=== PATIENT | female | born 1985 | race Caucasian/White ===

== ENCOUNTER 2020-01-07 13:18 | Emergency (ER) | payer SELFPAY ==
[2020-01-07] MEDS ORDERED: Sodium Chloride 0.9% 10 ML Syringe FLUSH PRN (13:47)
[2020-01-07] MEDS ORDERED: Aspirin 81 MG Tab.Chew PO ONE (13:47)
--- NOTE | 2020-01-07 14:12 | CR ---
Chest: PA and lateral views of the chest were obtained. Comparison: No prior chest imaging. Findings: Heart size and mediastinum are normal. Lungs are clear. Bony structures are grossly intact. Impression: 1. Nothing acute is seen on 2 view chest x-ray. Diagnostic code #1 This report was dictated in MDT
--- NOTE | 2020-01-07 15:39 | EDM.PDOC ---
ED HPI GENERAL MEDICAL PROBLEM - General Chief Complaint: Chest Pain Stated Complaint: CHEST TIGHTNESS/BACK-NECK PAIN Time Seen by Provider: 01/07/20 13:34 Source of Information: Reports: Patient History Limitations: Reports: No Limitations - History of Present Illness INITIAL COMMENTS - FREE TEXT/NARRATIVE: The patient presents with chest pain. This started a few days ago. She has some shortness of breath with it. She says the pain is made worse with deep breathing. She has no history of heart problems. She has no fever, chills or cough. She has no abdominal pain, nausea or vomiting. She has no history of DVT or PE. She has no recent travel. Onset: Gradual Duration: Day(s): Location: Reports: Chest Quality: Reports: Sharp Severity: Moderate Improves with: Reports: None Worsens with: Reports: None Associated Symptoms: Reports: Chest Pain, Shortness of Breath. Denies: Cough, Fever/Chills, Headaches, Nausea/Vomiting Middle Chest Pain Score (Numeric/FACES): 5 - Related Data Allergies Allergy/AdvReac Type Severity Reaction Status Date / Time No Known Allergies Allergy Verified 01/07/20 13:27 Home Meds: Home Meds . [No Known Home Meds] 01/07/20 [History] Past Medical History - Past Health History Medical/Surgical History: Denies Medical/Surgical History Social & Family History - Tobacco Use Smoking Status *Q: Never Smoker Second Hand Smoke Exposure: No - Recreational Drug Use Recreational Drug Use: No ED ROS GENERAL - Review of Systems Review Of Systems: See Below Constitutional: Reports: No Symptoms HEENT: Reports: No Symptoms Respiratory: Reports: Shortness of Breath Cardiovascular: Reports: Chest Pain Endocrine: Reports: No Symptoms GI/Abdominal: Reports: No Symptoms : Reports: No Symptoms Musculoskeletal: Reports: No Symptoms ED EXAM, GENERAL - Physical Exam Exam: See Below Exam Limited By: No Limitations General Appearance: Alert, No Apparent Distress Ears: Normal External Exam Nose: Normal Inspection Head: Atraumatic, Normocephalic Neck: Normal Inspection Respiratory/Chest: No Respiratory Distress, Lungs Clear, Normal Breath Sounds Cardiovascular: Regular Rate, Rhythm, No Edema, No Murmur GI/Abdominal: Soft, Non-Tender, No Organomegaly, No Mass Back Exam: Normal Inspection Extremities: Normal Inspection EKG INTERPRETATION EKG Date: 03/26/20 Time: 13:58 Rhythm: NSR Rate (Beats/Min): 68 [place]: Normal P-Wave: Present QRS: Normal ST-T: Normal QT: Normal Course - Vital Signs Last Recorded V/S: Last Vital Signs Temp 98.4 F 01/07/20 13:24 Pulse 89 01/07/20 13:24 Resp 16 01/07/20 13:24 BP 136/80 01/07/20 13:24 Pulse Ox 98 01/07/20 13:24 - Orders/Labs/Meds Orders: Active Orders 24 hr Category Date Time Status Cardiac Monitoring [RC] . DIRECTED Care 01/07/20 13:47 Active EKG Documentation Completion [RC] STAT Care 01/07/20 13:48 Active Peripheral IV Care [RC] . DIRECTED Care 01/07/20 13:48 Active Sodium Chloride 0.9% [Saline Flush] Med 01/07/20 13:47 Active 10 ml FLUSH ASDIRECTED PRN Peripheral IV Insertion Adult [OM.PC] Stat Oth 01/07/20 13:47 Ordered Medication Orders Sodium Chloride (Saline Flush) 10 ml FLUSH ASDIRECTED PRN PRN Reason: Keep Vein Open Last Admin: 01/07/20 14:17 Dose: 10 ml Labs: Laboratory Tests 01/07/20 01/07/20 01/07/20 Range/Units 14:15 14:15 14:15 WBC 8.42 (3.98-10.04) K/mm3 RBC 4.85 (3.98-5.22) M/mm3 Hgb 14.3 (11.2-15.7) gm/dl Hct 41.8 (34.1-44.9) % MCV 86.2 (79.4-94.8) fl MCH 29.5 (25.6-32.2) pg MCHC 34.2 (32.2-35.5) g/dl RDW Std Deviation 39.9 (36.4-46.3) fL Plt Count 266 (182-369) K/mm3 MPV 10.5 (9.4-12.3) fl Neut % (Auto) 58.9 (34.0-71.1) % Lymph % (Auto) 29.2 (19.3-51.7) % [place] % (Auto) 8.3 (4.7-12.5) % Eos % (Auto) 3.2 (0.7-5.8) Baso % (Auto) 0.2 (0.1-1.2) % Neut # (Auto) 4.95 (1.56-6.13) K/mm3 Lymph # (Auto) 2.46 (1.18-3.74) K/mm3 [place] # (Auto) 0.70 H (0.24-0.36) K/mm3 Eos # (Auto) 0.27 (0.04-0.36) K/mm3 Baso # (Auto) 0.02 (0.01-0.08) K/mm3 D-Dimer, Quantitative 0.41 (0.19-0.50) mg/L Sodium 141 (136-145) mEq/L Potassium 3.9 (3.5-5.1) mEq/L Chloride 105 (98-107) mEq/L Carbon Dioxide 23 (21-32) mEq/L Anion Gap 16.9 H (5-15) BUN 14 (7-18) mg/dL Creatinine 0.9 (0.55-1.02) mg/dL Est Cr Clr Drug Dosing 76.06 mL/min Estimated GFR (MDRD) > 60 (>60) mL/min BUN/Creatinine Ratio 15.6 (14-18) Glucose 90 (74-106) mg/dL Calcium 8.9 (8.5-10.1) mg/dL Total Bilirubin 0.2 (0.2-1.0) mg/dL AST 20 (15-37) U/L ALT 28 (14-59) U/L Alkaline Phosphatase 58 (46-116) U/L Troponin I < 0.017 (0.00-0.056) ng/mL Total Protein 7.6 (6.4-8.2) g/dl Albumin 3.8 (3.4-5.0) g/dl Globulin 3.8 gm/dL Albumin/Globulin Ratio 1.0 (1-2) Meds: Medications Generic Name Dose Route Start Last Admin Trade Name Freq PRN Reason Stop Dose Admin Sodium Chloride 10 ml 01/07/20 13:47 01/07/20 14:17 Saline Flush FLUSH 10 ml ASDIRECTED PRN Administration Keep Vein Open Discontinued Medications Generic Name Dose Route Start Last Admin Trade Name Freq PRN Reason Stop Dose Admin Aspirin 324 mg 01/07/20 13:47 01/07/20 14:16 Aspirin PO 01/07/20 13:48 324 mg ONETIME ONE Administration - Re-Assessments/Exams Free Text/Narrative Re-Assessment/Exam: 01/07/20 15:57 I ordered an IV saline lock, EKG, CXR and labs. Her EKG shows a NSR with no acute changes. Her CXR looks good. Her CBC and CMP look good. Her troponin is negative. Her D-dimer is negative. I feel she does have some pleurisy. I will discharge her home. Departure - Departure Time of Disposition: 16:00 Disposition: Home, Self-Care 01 Condition: Good Clinical Impression: Pleurisy Referrals: PCP,None [Primary Care Provider] - Forms: ED Department Discharge Additional Instructions: Take motrin or tylenol for pain. Drink plenty of fluids. Try to stop vaping. Please return if you are worse. Sepsis Event Note - Evaluation Sepsis Screening Result: No Definite Risk - Focused Exam Vital Signs: Vital Signs Temp Pulse Resp BP Pulse Ox 01/07/20 13:24 98.4 F 89 16 136/80 98 Date Exam was Performed: 01/07/20 Time Exam was Performed: 15:51 - My Orders Last 24 Hours: My Active Orders 01/07/20 13:47 Cardiac Monitoring [RC] . DIRECTED Sodium Chloride 0.9% [Saline Flush] 10 ml FLUSH ASDIRECTED PRN Peripheral IV Insertion Adult [OM.PC] Stat 01/07/20 13:48 EKG Documentation Completion [RC] STAT Peripheral IV Care [RC] . DIRECTED - Assessment/Plan Last 24 Hours: My Active Orders 01/07/20 13:47 Cardiac Monitoring [RC] . DIRECTED Sodium Chloride 0.9% [Saline Flush] 10 ml FLUSH ASDIRECTED PRN Peripheral IV Insertion Adult [OM.PC] Stat 01/07/20 13:48 EKG Documentation Completion [RC] STAT Peripheral IV Care [RC] . DIRECTED
== END 2020-01-07 16:13 | disposition home or self-care (01) ==
LOC: JD.ED 13:18
DX: R09.1 Pleurisy (principal)
CPT/HCPCS: 36415; 71046; 80053; 84484; 85025; 85379; 93005; 99285; A9270; 93010; 99283

== ENCOUNTER 2021-01-23 16:23 | Emergency (ER) | payer BC ==
[2021-01-23] MEDS ORDERED: Sodium Chloride 0.9% 10 ML Syringe FLUSH PRN (16:56)
--- NOTE | 2021-01-23 17:03 | EDM.PDOC ---
ED HPI GENERAL MEDICAL PROBLEM - General Chief Complaint: [employer] Problem Stated Complaint: CRAMPING/5WEEK PREG Time Seen by Provider: 01/23/21 16:31 Source of Information: Reports: Patient History Limitations: Reports: No Limitations - History of Present Illness INITIAL COMMENTS - FREE TEXT/NARRATIVE: 35-year-old female presents to the emergency department with pelvic cramping and low back pain that started last evening while she was laying in bed. The patient's last menstrual period is December 182020. Estimated to be about 5 weeks . She is a 5 para 2. With her last 2 pregnancies resulting in miscarriage. The patient states while laying in bed last night she developed lower pelvic cramping/pressure and low back pain. She states that she has never felt this type of cramping and low back pain that even with her menstrual cramps. She denies any recent fever, chills, nausea, vomiting, diarrhea or urinary symptoms. She denies any vaginal bleeding or spotting associated with this. She states that she has had increased issues with constipation over the past couple of days. She states she does have a scheduled appointment 3 days from now with her W[employer] ENG[employer]IST Dr. Zeng however she did speak with her today on the phone and Dr. Zeng advised her to come to the emergency department to be evaluated. Of note, patient states she has taken 7 tests and all have been positive. Lower Pelvic Pain Score (Numeric/FACES): 6 - Related Data Allergies Allergy/AdvReac Type Severity Reaction Status Date / Time No Known Allergies Allergy Verified 01/07/20 13:27 Home Meds: Home Meds . [No Known Home Meds] 01/07/20 [History] Past Medical History - Past Health History Medical/Surgical History: Denies Medical/Surgical History [employer]IST History: Reports: , Spontaneous - Infectious Disease History Infectious Disease History: Reports: C-Difficile Social & Family History - Tobacco Use Tobacco Use Status *Q: Never Tobacco User - Caffeine Use Caffeine Use: Reports: Tea - Recreational Drug Use Recreational Drug Use: No ED ROS GENERAL - Review of Systems Review Of Systems: Comprehensive ROS is negative, except as noted in HPI. ED EXAM - Physical Exam Exam: See Below Exam Limited By: No Limitations General Appearance: Alert, WD/WN, No Apparent Distress Ears: Normal External Exam, Hearing Grossly Normal Nose: Normal Inspection Throat/Mouth: Normal Inspection, Normal Lips, Normal Voice, No Airway Compromise Head: Atraumatic Neck: Normal Inspection, Supple Respiratory/Chest: No Respiratory Distress, Lungs Clear, Normal Breath Sounds, No Accessory Muscle Use, Chest Non-Tender Cardiovascular: Normal Peripheral Pulses, Regular Rate, Rhythm, No Edema, No Murmur GI/Abdominal Exam: Normal Bowel Sounds, Soft, Non-Tender, No Distention Rectal Exam: Deferred (Female) Exam: Other (not performed) Back Exam: Normal Inspection, Full Range of Motion Extremities: Normal Inspection, Normal Range of Motion, Non-Tender, No Pedal Edema, Normal Capillary Refill Neurological: Alert, Oriented, Normal Cognition Psychiatric: Normal Affect, Normal Mood Skin Exam: Warm, Dry, Intact, Normal Color, No Rash Lymphatic: No Adenopathy Course - Vital Signs Text/Narrative:: 35 year old female with new onset pelvic cramping and low back pain that started last evening. Pt states that she is otherwise healthy and has not had any issues with this , however has had two previous miscarriages prior to this . Pt does not have any increased abdominal tenderness with palpation. I have ordered to have a saline lock placed. Labs, UA, and a transvaginal ultrasound. Last Recorded V/S: Last Vital Signs Temp 98.2 F 01/23/21 16:40 Pulse 83 01/23/21 16:40 Resp BP 119/69 01/23/21 16:40 Pulse Ox 100 01/23/21 16:40 - Orders/Labs/Meds Orders: Active Orders 24 hr Category Date Time Status Sodium Chloride 0.9% [Saline Flush] Med 01/23/21 16:56 Active 10 ml FLUSH ASDIRECTED PRN Saline Lock Insert [OM.PC] Stat Oth 01/23/21 16:56 Ordered Medication Orders Sodium Chloride (Sodium Chloride 0.9% 10 Ml Syringe) 10 ml FLUSH ASDIRECTED PRN PRN Reason: Keep Vein Open Last Admin: 01/23/21 17:30 Dose: 10 ml Documented by: ROSA Labs: Laboratory Tests 01/23/21 01/23/21 01/23/21 Range/Units 17:00 17:30 17:30 WBC 9.12 (3.98-10.04) K/mm3 RBC 4.41 (3.98-5.22) M/mm3 Hgb 12.9 (11.2-15.7) gm/dl Hct 38.3 (34.1-44.9) % MCV 86.8 (79.4-94.8) fl MCH 29.3 (25.6-32.2) pg MCHC 33.7 (32.2-35.5) g/dl RDW Std Deviation 42.6 (36.4-46.3) fL Plt Count 242 (182-369) K/mm3 MPV 10.6 (9.4-12.3) fl Neut % (Auto) 59.2 (34.0-71.1) % Lymph % (Auto) 27.6 (19.3-51.7) % [place] % (Auto) 9.8 (4.7-12.5) % Eos % (Auto) 3.0 (0.7-5.8) Baso % (Auto) 0.2 (0.1-1.2) % Neut # (Auto) 5.40 (1.56-6.13) K/mm3 Lymph # (Auto) 2.52 (1.18-3.74) K/mm3 [place] # (Auto) 0.89 H (0.24-0.36) K/mm3 Eos # (Auto) 0.27 (0.04-0.36) K/mm3 Baso # (Auto) 0.02 (0.01-0.08) K/mm3 HCG, Quant 59.0 mIU/mL Urine Color Yellow (Yellow) Urine Appearance Clear (Clear) Urine pH 6.0 (5.0-8.0) Ur Specific [place] > or = 1.030 (1.005-1.030) Urine Protein Negative (Negative) Urine Glucose (UA) Negative (Negative) Urine Ketones Negative (Negative) Urine Occult Blood Trace-intact H (Negative) Urine Nitrite Negative (Negative) Urine Bilirubin Negative (Negative) Urine Urobilinogen 0.2 (0.2-1.0) Ur Leukocyte Esterase Negative (Negative) Urine RBC 0-5 (0-5) /hpf Urine WBC 0-5 (0-5) /hpf Ur Squamous Epith Cells 0-5 (0-5) /hpf Urine Bacteria Few (FEW) /hpf Urine Mucus Few (FEW) /hpf Meds: Medications Generic Name Dose Route Start Last Admin Trade Name Freq PRN Reason Stop Dose Admin Sodium Chloride 10 ml 01/23/21 16:56 01/23/21 17:30 Sodium Chloride 0.9% 10 Ml Syringe FLUSH 10 ml ASDIRECTED PRN Administration Keep Vein Open - Re-Assessments/Exams Free Text/Narrative Re-Assessment/Exam: 01/23/21 18:23 Hematology is unremarkable hCG quantitative is 59.0 Urinalysis shows a trace of intact occult blood and is otherwise unremarkable. Radiologist impression transvaginal ultrasound: 1. Endometrial thickness is increased and heterogenous. No intrauterine is seen at this time. 2. Uterine fibroid is seen measuring 2.9 cm. Complicated nabothian cyst is present. 3. No adnexal abnormalities are seen. 2 cysts are noted within the left ovary measuring 2.4 cm and 1.6 cm which are most likely incidental. Right ovary is unremarkable. Discussed the results with the patient. At this time I will allow her to be discharged to home with strong recommendations that she keep her appointment with Dr. Zeng but that is scheduled 3 days from now. Strong return precautions should she develop heavy vaginal bleeding. Departure - Departure Time of Disposition: 18:24 Disposition: Home, Self-Care 01 Condition: Good Clinical Impression: Abdominal cramping affecting - Discharge Information Instructions: Abdominal Pain During , [id number] Referrals: Mary Garcia NP [Primary Care Provider] - Forms: ED Department Discharge Additional Instructions: You were seen in the emergency department today with complaints of lower abdominal cramping and back pain at approximately 5 weeks of . Labs were completed today as well as urinalysis and you do not have any signs of infection. Your hCG levels were drawn and they were 59.0 today. Transvaginal ultrasound was completed and there was no intrauterine seen at this time however there are 2 cysts on your left ovary and a fibroid is present within your uterus. Strongly recommend that you keep your appointment that has been previously scheduled with Dr. Zeng on . Should you develop severe cramping not relieved by Tylenol or start bleeding vaginally going through 3-4 pads in 1 hour recommend you return to the emergency department to be evaluated. Sepsis Event Note (ED) - Evaluation Sepsis Screening Result: No Definite Risk - Focused Exam Vital Signs: Vital Signs Temp Pulse BP Pulse Ox 01/23/21 16:40 98.2 F 83 119/69 100 - My Orders Last 24 Hours: My Active Orders 01/23/21 16:56 Sodium Chloride 0.9% [Saline Flush] 10 ml FLUSH ASDIRECTED PRN Saline Lock Insert [OM.PC] Stat - Assessment/Plan Last 24 Hours: My Active Orders 01/23/21 16:56 Sodium Chloride 0.9% [Saline Flush] 10 ml FLUSH ASDIRECTED PRN Saline Lock Insert [OM.PC] Stat
--- NOTE | 2021-01-23 17:55 | US ---
First trimester obstetrical ultrasound: Multiple real-time images were obtained of the pelvis transvaginally. Comparison: None available Endometrial thickness is increased and somewhat heterogeneous. Overall thickness is up to 2.5 cm. Small uterine fibroid is believed to be present posteriorly measuring up to 2.9 cm. Complicated nabothian cyst is present. No adnexal abnormalities are seen. Two cysts are noted within the left ovary measuring 2.4 cm and 1.6 cm which are most likely incidental. Right ovary is unremarkable. Small amount of free fluid is seen. Impression: 1. Endometrial thickness is increased and heterogeneous. No intrauterine is seen at this time. 2. Uterine fibroid is seen. 3. Other findings believed to be incidental as described above. Diagnostic code #3
== END 2021-01-23 18:57 | disposition home or self-care (01) ==
LOC: JD.ED 16:23
DX: O99.891 Other specified diseases and conditions complicating pregnancy (principal); R10.2 Pelvic and perineal pain; M54.5 Low back pain; Z3A.01 Less than 8 weeks gestation of pregnancy
CPT/HCPCS: 36415; 76817; 76817-26; 81001; 84702; 85025; 99283; 99284-25

== ENCOUNTER 2024-02-21 21:14 | Emergency (ER) | payer BC, OTHER ==
[2024-02-21] MEDS ORDERED: Sodium Chloride 0.9% 10 ML Syringe FLUSH PRN (21:50)
[2024-02-21] MEDS: Iopamidol 755 Mg/ML 100 ML Bottle IVPUSH ONE (22:13)
[2024-02-21] MEDS ORDERED: Sodium Chloride 0.9% 100 ML IV SCH (22:15)
[2024-02-21 22:22] LABS: BASOPHILS PERCENT AUTO 0.4 % (0.0-1.0); EOSINOPHILS ABSOLUTE AUTO 0.3 K/mm3 (0.0-0.4); EOSINOPHILS PERCENT AUTO 3.8 % (0.0-6.0); HEMATOCRIT 38.6 % (37.0-47.0); HEMOGLOBIN 12.7 gm/dl (12.0-16.0); IMMATURE GRAN ABSOLUTE AUTO 0.02 K/mm3 (0.00-0.05); IMMATURE GRAN PERCENT AUTO 0.2 % (0.0-0.4); LYMPHOCYTES ABSOLUTE AUTO 2.2 K/mm3 (1.0-4.8); LYMPHOCYTES PERCENT AUTO 24.5 % (24.0-44.0); MEAN CORPUSCULAR HEMOGLOBIN 27.5 pg (28.0-32.0); MEAN CORPUSCULAR HGB CONC 32.9 g/dl (32.0-36.0); MEAN CORPUSCULAR VOLUME 83.7 fl (83.0-99.0); MEAN PLATELET VOLUME 10.4 fl (9.4-12.3); NEUTROPHILS ABSOLUTE AUTO 5.4 K/mm3 (1.8-7.7); NEUTROPHILS PERCENT AUTO 60.1 % (41.0-71.0); PLATELET COUNT,PLT 253 K/mm3 (150-400); RED BLOOD CELL COUNT 4.61 M/mm3 (4.10-5.30); WHITE BLOOD CELL COUNT,WBC 8.91 K/mm3 (3.9-11.3)
[2024-02-21 23:01] LABS: A/G RATIO 0.9 (1-2); ALBUMIN 3.2 g/dl (3.4-5.0); ANION GAP 13.8 (5-15); BILIRUBIN TOTAL 0.3 mg/dL (0.2-1.0); CALCIUM 8.6 mg/dL (8.5-10.1); EST CRCL DRUG DOSING (CG) 65.87 mL/min; POTASSIUM,K 3.8 mEq/L (3.5-5.1); PROTEIN TOTAL,TP 6.9 g/dl (6.4-8.2)
[2024-02-21] MEDS: Sodium Chloride 0.9% 10 ML Syringe FLUSH PRN (23:14)
== END 2024-02-21 23:58 | disposition home or self-care (01) ==
LOC: JD.ED 21:14
DX: R60.0 Localized edema (principal); R53.81 Other malaise; Z79.899 Other long term (current) drug therapy; Z91.030 Bee allergy status
CPT/HCPCS: 36415; 71275; 80053; 84484; 84703; 85025; 93005; 93971; 99285; J3490; Q9967